=== PATIENT | female | born 1975 | race Caucasian/White ===

== ENCOUNTER 2019-04-02 17:07 | Inpatient (IN) | payer MEDICARE, MEDICAID ==
[~2019-04-02] VITALS: Ht 165.1 cm; Wt 109.2 kg
[2019-04-02] MEDS ORDERED: ELIQUIS5 MG PO (17:22)
[2019-04-02] MEDS ORDERED: AMBIEN10 MG PO (17:22)
[2019-04-02] MEDS ORDERED: XANAX2 MG PO (17:22)
[2019-04-02] MEDS ORDERED: BUPROPION HCL200 M1 PO (17:22)
[2019-04-02] MEDS ORDERED: ABILIFY10 MG PO (17:23)
[2019-04-02 17:42] LABS: BASOPHILS 0.3 % (0-2); EOSINOPHILS 2.4 % (0-7); HEMATOCRIT 41.8 % (36.0-48.0); HEMOGLOBIN 14.2 g/dL (12-16); IMMATURE GRANULOCYTES 0.2 % (0-5); LYMPHOCYTES 31.5 % (15-50); MCH 30.8 pg (26.0-34.0); MCV 90.7 fL (80.0-100.0); MEAN PLATELET VOLUME 10.7 fL (7.4-10.4); MONOCYTES 5.3 % (2-11); NEUTROPHILS 60.3 % (40-80); RBC 4.61 10x6/uL (4.00-5.40); RDW 13.4 % (11.5-14.5); WBC 13.3 10x3/uL (4.8-10.8)
[2019-04-02 17:45] LABS: PLATELET COUNT 264 10x3/uL (130-400)
[2019-04-02 18:04] LABS: ALBUMIN 3.2 g/dL (3.4-5.0); ANION GAP 12.1 mmol/L (8-16); BILIRUBIN - TOTAL 0.28 mg/dL (0.2-1.3); CALCIUM 8.5 mg/dL (8.5-10.1); CARBON DIOXIDE 30.8 mmol/L (21.0-32.0); CREATININE - SERUM 1.2 mg/dL (0.6-1.3); POTASSIUM - SERUM 3.9 mmol/L (3.5-5.1); PROTEIN - SERUM 7.6 g/dL (6.4-8.2)
--- NOTE | 2019-04-02 19:05 | NUR ---
HAND OFF REPORT GIVEN TO ALESIA TRUJILLO
--- NOTE | 2019-04-02 19:15 | NUR ---
RT AT PT BEDSIDE, PT RECEIVING UPDRAFT AT THIS TIME. PT O2 SAT 98%
--- NOTE | 2019-04-02 19:15 | NUR ---
PT RESTING ON BED. NO S/S OF ACUTE DISTRESS NOTED. PT RESTING ON BED.
--- NOTE | 2019-04-02 20:25 | NUR ---
PT C/O PAIN TO CHEST AND BACK R/T PREVIOUS RIB FX. RN ADMINISTERED PRN MORPHINE 2MG AND ORDERED ZOFRAN.
[2019-04-02 20:30] VITALS: BP 118/77
[2019-04-02 21:00] VITALS: BP 129/75
--- NOTE | 2019-04-02 21:14 | NUR ---
PT PROVIDED [place] SODA PER REQUEST. PT UPDATED ON PLAN OF CARE. PT PLACED ON 3L O2 VIA NC D/T O2 SAT 92% ON RA. PT DENIES NEEDS AT THIS TIME.
[2019-04-03] VITALS: BP 139/84
[2019-04-03] MEDS ORDERED: PREDNISONE10 MG (00:03)
[2019-04-03] MEDS ORDERED: AMOXICILLIN875 MG PO (00:03)
[2019-04-03] MEDS ORDERED: LIPITOR20 MG (00:03)
[2019-04-03] MEDS ORDERED: ROBAXIN500 MG (00:04)
[2019-04-03] MEDS ORDERED: NEXIUM40 MG PO (00:04)
[2019-04-03] MEDS ORDERED: ZOFRAN8 MG (00:05)
[2019-04-03] MEDS ORDERED: AMBIEN5 MG PO (00:05)
[2019-04-03] MEDS ORDERED: XOPENEX HFA15 GM (00:05)
[2019-04-03] MEDS ORDERED: ARIPIPRAZOLE 30 MG (00:06)
[2019-04-03] MEDS ORDERED: PROPRANOLOL HCL20 MG PO (00:06)
[2019-04-03 00:07] VITALS: BP 139/84; BMI 40.0
--- NOTE | 2019-04-03 00:29 | NUR ---
RECIEVED REPORT FROM YUSRA TRUJILLO. PT ARRIVED ON WHEELCHAIR. AAOX3, VSS, NO S/S OF RESP. DISTRESS. PLACED PT ON 3L NC ON ARRIVAL. SANDWICH PROVIDED PER REQUEST. INITIAL ASSESS COMPLETED. PT A GOOD HISTORIAN. PT CURRENTLY RESTING IN BED @ THIS TIME. WILL CPOC. CL IN REACH, BED IN LOW, SR UP X2.
--- NOTE | 2019-04-03 01:30 | NUR ---
PT C/O PAIN IN CHEST, AND ALSO C/O HAVING DIFFICULTY SLEEPING AND FEELING RESTLESS. IV MORPHINE/ ATIVAN GIVEN PER PROVIDERS ORDERS. SODA PROVIDED PER REQUEST. PT CURRENLTY RESTING IN BED. DENIES ANY FURTHER NEEDS AT THIS TIME. WILL CTM.
--- NOTE | 2019-04-03 02:42 | NUR ---
PT UP IN BED WITH EYES OPEN. NO S/S OF RR DISTRESS. SODA AND ACE CRACKERS PROVIDED PER PT REQUEST. WILL CPOC.
[2019-04-03 04:00] VITALS: BP 129/69
--- NOTE | 2019-04-03 05:23 | NUR ---
I have reviewed this patient and I concur with the Shift Assessment completed by the Licensed Practical Nurse today this shift.
--- NOTE | 2019-04-03 07:25 | NUR ---
AM ROUNDS- PT NOT IN ROOM, ACCORDING TO CHEMICAL DEPENDENCY COUNSELOR NURSE PT HAS FAMILY ON MED 3 THAT SHE KEEPS GOING TO VISIT.
--- NOTE | 2019-04-03 08:57 | NUR ---
PT IN BED, TALKING ON THE PHONE, A/O X4, RESP EVEN AND UNLBORED ON RA. AUDIBLE WHEEZING NOTED. LT FA IV SL. PROVIDED PT WITH A SODA. PT DENIES ANY OTHER NEEDS AT THIS TIME. CALL LIGHT IN REACH, NAD NOTED, WILL CONTINUE PLAN OF CARE.
--- NOTE | 2019-04-03 09:10 | NUR ---
PT ASKING FOR PAIN MEDICATION, INFORMED HER THAT SHE CANNOT HAVE PAIN MEDICATION UNTIL 1000. PT VERBALIZED UNDERSTANDING, DENIES ANY NEEDS AT THIS TIME.
--- NOTE | 2019-04-03 10:34 | NUR ---
GAVE 2MG OF MORPHINE FOR PAIN LEVEL OF 9/10 TO CHEST/LUNG AREA. ALSO GAVE 0.5MG OF ATIVAN FOR ANXIETY. PT ASKING WHEN SHE IS BEING D/C. INFORMED PT THAT THE DOCTOR HAS TO ROUND AND DECIDE IF SHE IS READY FOR D/C. ALSO PROVIDED PT WITH CUP OF WATER AND SODA. PT DENIES ANY OTHER NEEDS AT THIS TIME, CALL LIGHT IN REACH, NAD NOTED, WILL CONTINUE TO MONITOR.
[2019-04-03 12:16] VITALS: BP 124/72
--- NOTE | 2019-04-03 13:11 | NUR ---
PT CALLED THIS NURSE TO ROOM, SAYING THAT SHE IS LEAVING BECAUSE SHE HAS NOT SEEN A DOCTOR SINCE SHE WAS ADMITTED LAST NIGHT AND THAT HER IS DOWNSTAIRS ON MED 3 AND SHE IS BEING DISCHARGE AND HAS TO GO WITH HER. CALLED EFE AND DR. LUBIN TO LET THEM KNOW. PT SIGNED AMA PAPERS. EFE JOHNSTON CAME TO ROOM TO TALK TO PT, PT STATED SHE IS STILL LEAVING AMA, JUST WAITING ON EFE JOHNSTON TO LET HER KNOW IF SHE IS GIVING HER ANY PRESCRIPTIONS.
[2019-04-03 13:34] VITALS: Ht 165.1 cm; Wt 109.2 kg
--- NOTE | 2019-04-03 13:51 | NUR ---
PT LEFT UNIT VIA AMBULATORY, WITH ALL BELONGINGS, NAD NOTED.
--- NOTE | 2019-04-03 16:44 | MORECARE ---
CASE MANAGEMENT DISCHARGE SUMMARY PATIENT: MEHRDAD RAMOS UNIT: [id number] ADM DATE: 04/02/19 AGE: 44 : 77 SEX: F ROOM/BED: D.2102 AUTHOR: DEMOND SHORT PHYSICIAN: REFERRING PHYSICIAN: TAYO LUBIN MD DATE OF SERVICE: 04/03/19 Discharge Plan Patient Name: [facility]AD RAMOS [facility] [facility] 1975 Planned Disposition: Left Against Medical Advice Anticipated Discharge Date: 03/17/19 Discharge Date: 04/03/2019 Expected LOS: -16 Initial Reviewer: [email or web address] Initial Review Date: 04/03/2019 Generated: 04/03/19 5:43 pm Patient Name: MEHRDAD RAMOS Page [phone] at 1644 All edits/amendments must be made on the electronic document DICTATION DATE: 04/03/191642 LATIN DANCE INSTRUCTOR: RANJIT 04/03/191642 RPT#: [id number] DC DATE:04/03/19 STATUS: DIS IN [facility] [address] [place] [address] END OF REPORT
== END 2019-04-03 13:55 | disposition left against medical advice (07) | DRG 192 ==
LOC: D.ER 17:07 → D.M2 21:31
PROVIDERS: Family Medicine; ADMIT Internal Medicine Nephrology; ATTEND Internal Medicine Nephrology
DX: J44.1 Chronic obstructive pulmonary disease with (acute) exacerbation (principal); Z86.711 Personal history of pulmonary embolism; Z79.01 Long term (current) use of anticoagulants; F20.9 Schizophrenia, unspecified; F31.9 Bipolar disorder, unspecified